=== PATIENT | female | born 1940 | race Caucasian/White ===

== ENCOUNTER → 2017-08-05 | Outpatient (CLI) | payer MEDICARE | LOC: GMAB 12:13 | PROVIDERS: ATTEND Family Medicine | DX: I10 Essential (primary) hypertension (principal) ==

== ENCOUNTER 2018-05-05 16:12 | Inpatient (IN) | payer MEDICARE ==
[2018-05-05] MEDS ORDERED: IPRATROPIUM/ALBUTEROL 3 ML VIAL NEB ONE (16:33)
[2018-05-05] MEDS ORDERED: OSELTAMIVIR 75 MG CAP PO ONE (16:33)
--- NOTE | 2018-05-05 16:55 | RAD ---
EXAM DESCRIPTION: Chest,2 Views CLINICAL HISTORY: 77 years Female, cough, sob, scattered rales maryamn dariana COMPARISON: None Available TECHNIQUE: PA/lateral FINDINGS: Cardiomegaly is evident. Diffuse interstitial and alveolar lung disease is observed. No pleural fluid is seen. Degenerative changes are seen in the thoracic spine. Posterior cervical spine fusion is observed. Bilateral breast implants are noted. IMPRESSION: Cardiomegaly and bilateral interstitial and alveolar lung disease is observed. The pattern is consistent with congestive heart failure. The possibility of a superimposed infection could also be entertained. 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
[2018-05-05] MEDS ORDERED: cefTRIAXone SODIUM 1 GM in SODIUM CHL 0.9% 50ML MIN-BAG+ 50 ML IVPB ONE (17:57)
[2018-05-05] MEDS ORDERED: AZITHROMYCIN IV 500 MG in SODIUM CHLORIDE 0.9% 250ML 250 ML IVPB ONE (17:57)
[2018-05-05] MEDS ORDERED: POTASSIUM CHLORIDE ELIXIR 20 MEQ/15 ML UD PO ONE (18:09)
[2018-05-05] MEDS ORDERED: SODIUM CHL 0.9% 50ML MIN-BAG+ 50 ML IVPB ONE (18:10)
[2018-05-05] MEDS ORDERED: cefTRIAXone SODIUM 1 GM VIAL ONE (18:10)
[2018-05-05] MEDS ORDERED: FUROSEMIDE INJ 40 MG/4 ML VIAL IV ONE (18:11)
--- NOTE | 2018-05-05 18:17 | ED.PDOC ---
History of Present Illness - General Chief Complaint: Respiratory Problem Stated Complaint: cough,sore throat,shortness of breath Time Seen by Provider: 05/05/18 16:29 Source: patient, family Exam Limitations: no limitations - History of Present Illness Initial Comments: The patient is a 77-year-old female presenting with 4-5 days of progressive symptoms of cough and shortness of breath. The patient has been exposed to another family member in the household with the flu. No history of any lung issues that she knows of. No history of any heart issues that she kn ows of. The patient desaturates down to around 85% on room air. History of any oxygen dependence. No history of any COPD. The patient has wheezes and rhonchi that can be heard without a stethoscope. She has mild increased work of breathing. She is alert and oriented but does have chronic hearing loss. She reports that symptoms started with a runny nose and a sore throat. The patient has not been on Tamiflu. She does short of breath with activity and with lying back. No swelling and no weight gain. No chest pain. Severity: moderate Improving Factors: nothing Worsening Factors: nothing Associated Symptoms: cough, fever/chills, loss of appetite, malaise, shortness of breath Allergies/Adverse Reactions: Allergies Codeine Allergy (Verified 05/05/18 16:59) horse serum Allergy (Uncoded 05/05/18 16:30) Home Medications: Ambulatory Orders Gabapentin 300 mg PO BID 05/05/18 Ibuprofen 200 mg PO BEDTIME 05/05/18 Lisinopril & Hydrochlorothiazi [Lisinopril/Hctz 20-12.5 mg] 1 tab PO DAILY 05/05/18 Sertraline HCl 100 mg PO DAILY 05/05/18 Vitamin B-12 05/05/18 Vitamin C 05/05/18 Review of Systems - Review of Systems Constitutional: States: chills, fever, malaise, weakness EENTM: States: nose congestion, throat pain Respiratory: States: cough, short of breath, wheezing Cardiology: States: no symptoms reported Gastrointestinal/Abdominal: States: no symptoms reported Genitourinary: States: no symptoms reported Musculoskeletal: States: no symptoms reported Skin: States: no symptoms reported Neurological: States: no symptoms reported Endocrine: States: no symptoms reported All other Systems: No Change from Baseline Past Medical History (General) - Patient Medical History Hx Stroke: No Hx Congestive Heart Failure: No Hx Hypertension: Yes Hx Diabetes: Yes Hx Cancer: Yes Surgical History: appendectomy, cholecystectomy, Hysterectomy - Vaccination History Hx Influenza Vaccination: No Hx Pneumococcal Vaccination: No - Social History Hx Tobacco Use: No Hx Depression: Yes Family Medical History - Family History Mother Family History: Unknown Physical Exam - Physical Exam General Appearance: Alert, Other - mild distress Eye Exam: bilateral normal Ears, Nose, Throat: nasal congestion, other - chronic hearing loss Neck: non-tender, supple Respiratory: respiratory distress - mild, accessory muscle use, rales, rhonchi, wheezing Cardiovascular/Chest: normal peripheral pulses, regular rate, rhythm, no edema Peripheral Pulses: radial,right: 2+, radial,left: 2+, dorsalis pedis,right: 2+, dorsalis pedis,left: 2+ Gastrointestinal/Abdominal: non tender, soft Rectal Exam: deferred Back Exam: no CVA tenderness, no vertebral tenderness Extremity: non-tender, normal inspection, no pedal edema, no calf tenderness, normal capillary refill 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: 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 beverage supervisor II-XII 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 tested, alert, normal mood/affect, oriented x 3 Skin Exam: normal color Comments: Vital Signs - 24 hr 05/05/18 05/05/18 05/05/18 16:27 16:55 17:40 Temperature 98.9 F Pulse Rate 94 H Pulse Rate [ 97 H Left Brachial] Respiratory 20 20 20 Rate Blood Pressure 146/61 [Left Arm] O2 Sat by Pulse 87 L 98 Oximetry 05/05/18 17:41 Temperature Pulse Rate Pulse Rate [ 91 H Left Brachial] Respiratory 20 Rate Blood Pressure 148/58 [Left Arm] O2 Sat by Pulse 96 Oximetry Progress - Progress Progress: 05/05/18 18:19 the patient is a 77-year-old female presenting to the emergency room with hypoxia and bilateral pneumonia. This probably did start with influenza so the patient is being placed on Tamiflu. Additionally she is being placed on Rocephin and azithromycin along with some oxygen. She has received 1 breathing treatment which did not really seem to help. It does appear that she is having a CHF component that may be reactive to the pneumonia. She is receiving 1 dose of IV Lasix. Cardiomegaly is evident on the x-ray. BNP is elevated as well. Her EKG does show that she has either had a previous myocardial infarction that was silent or she has a partial left fascicular block. No chest pain. Blood and sputum cultures are being done. Admit for continued IV antibiotic therapy and diuresis as needed as well as oxygen supplementation.the patient does have some hypokalemia which is being corrected orally currently. It will need to be followed due to diuresis. 05/05/18 18:22 - Results/Orders Results/Orders: chest x-ray shows infiltrates bilaterally along with cardiomegaly. EKG shows normal sinus rhythm at 97 bpm. Borderline QT interval. Poor R-wave progression in anterior leads. No ST segment or T-wave changes consistent with current ischemia. Borderline left axis. 05/05/18 17:15 EKG STAT 05/05/18 17:18 BLOOD CULTURE Stat 05/05/18 17:57 Azithromycin IV [Zithromax IV] 500 mg Sodium Chloride 0.9% 250Ml [NS 250ml] 250 ml IVPB ONCE cefTRIAXone SODIUM [Rocephin] 1 gm Sodium Chl 0.9% 50Ml Min-Bag+ [NS 50ml MINI-BAG+] 50 ml IVPB ONCE 05/05/18 18:15 SPUTUM CULTURE Stat Laboratory Results - last 24 hr 05/05/18 05/05/18 05/05/18 17:18 17:18 17:18 WBC 22.2 H* RBC 4.50 Hgb 12.8 Hct 39.1 MCV 86.9 MCH 28.5 MCHC 32.8 L RDW 15.1 H Plt Count 341 MPV 8.5 Absolute Neuts (auto) Not Reportable Absolute Lymphs (auto) Not Reportable Absolute Monos (auto) Not Reportable Absolute Eos (auto) Not Reportable Total Counted Neutrophils % Not Reportable Neutrophils % (Manual) 82.0 H Lymphocytes % Not Reportable Lymphocytes % (Manual) 6.0 Monocytes % Not Reportable Monocytes % (Manual) 10.0 Eosinophils % Not Reportable Basophils % Not Reportable Band Neutrophils 2.0 Eosinophils Basophils Metamyelocytes Myelocytes Promyelocytes Nucleated RBCs Differential Comment Not Reportable Hypersegmented Polys Blast Cells Plasma Cells Other Cell Type Hypochromia Toxic Granulation Dohle Bodies Nikki Rods Platelet Estimate Normal RBC Morphology Plts franki adequate Polychromasia Poikilocytosis Basophilic Stippling Anisocytosis Microcytosis Macrocytosis Spherocytes Sickle Cells Target Cells Ovalocytes Stomatocytes Helmet Cells Schmidt-Darfur Bodies Spencer Rings [place] Cells Acanthocytes (Spur) Rouleaux Schistocytes RBC Morph Comment PUBS Tear Drop Cells Sodium 136 Potassium 3.2 L Chloride 96 L Carbon Dioxide 28 Anion Gap 15.2 BUN 30 H Creatinine 0.82 BUN/Creatinine Ratio 36.6 H Random Glucose 156 H Serum Osmolality 281.3 Lactic Acid 1.0 Calcium 9.1 Magnesium 1.7 L Total Bilirubin 1.1 H AST 15 ALT 10 Alkaline Phosphatase 74 Creatine Kinase 38 CK-MB (CK-2) 1.5 CK-MB (CK-2) % Not Reportable Troponin I 0.04 B-Natriuretic Peptide 335.0 H* Serum Total Protein 8.1 Albumin 3.5 Globulin 4.6 H Albumin/Globulin Ratio 0.8 L 05/05/18 17:18 WBC RBC Hgb Hct MCV MCH MCHC RDW Plt Count MPV Absolute Neuts (auto) Absolute Lymphs (auto) Absolute Monos (auto) Absolute Eos (auto) Total Counted Cancelled Neutrophils % Neutrophils % (Manual) Cancelled Lymphocytes % Lymphocytes % (Manual) Cancelled Monocytes % Monocytes % (Manual) Cancelled Eosinophils % Basophils % Band Neutrophils Cancelled Eosinophils Cancelled Basophils Cancelled Metamyelocytes Cancelled Myelocytes Cancelled Promyelocytes Cancelled Nucleated RBCs Cancelled Differential Comment Cancelled Hypersegmented Polys Cancelled Blast Cells Cancelled Plasma Cells Cancelled Other Cell Type Cancelled Hypochromia Cancelled Toxic Granulation Cancelled Dohle Bodies Cancelled Nikki Rods Cancelled Platelet Estimate Cancelled Normal RBC Morphology Cancelled Polychromasia Cancelled Poikilocytosis Cancelled Basophilic Stippling Cancelled Anisocytosis Cancelled Microcytosis Cancelled Macrocytosis Cancelled Spherocytes Cancelled Sickle Cells Cancelled Target Cells Cancelled Ovalocytes Cancelled Stomatocytes Cancelled Helmet Cells Cancelled Schmidt-Darfur Bodies Cancelled Spencer Rings Cancelled Rob Cells Cancelled Acanthocytes (Spur) Cancelled Rouleaux Cancelled Schistocytes Cancelled RBC Morph Comment Cancelled PUBS Tear Drop Cells Cancelled Sodium Potassium Chloride Carbon Dioxide Anion Gap BUN Creatinine BUN/Creatinine Ratio Random Glucose Serum Osmolality Lactic Acid Calcium Magnesium Total Bilirubin AST ALT Alkaline Phosphatase Creatine Kinase CK-MB (CK-2) CK-MB (CK-2) % Troponin I B-Natriuretic Peptide Serum Total Protein Albumin Globulin Albumin/Globulin Ratio Departure - Departure Clinical Impression: Hypokalemia Pneumonia of both lower lobes Qualifiers: Pneumonia type: due to unspecified organism Qualified Code(s): J18.1 - Lobar pneumonia, unspecified organism CHF exacerbation Qualifiers: Heart failure type: unspecified Qualified Code(s): I50.9 - Heart failure, un specified Disposition: Admit Patient Departure Forms: ED Discharge - Pt. Copy, Patient Portal Self Enrollment Referrals: BAILEY GOODSON MD [Primary Care Provider] - 1-2 Weeks Home Medications: Ambulatory Orders Gabapentin 300 mg PO BID 05/05/18 Ibuprofen 200 mg PO BEDTIME 05/05/18 Lisinopril & Hydrochlorothiazi [Lisinopril/Hctz 20-12.5 mg] 1 tab PO DAILY 05/05/18 Sertraline HCl 100 mg PO DAILY 05/05/18 Vitamin B-12 05/05/18 Vitamin C 05/05/18 Decision To Admit - Decistion To Admit Decision to Admit Reason: Medical Nature Decision to Admit Date: 05/05/18 Decision to Admit Time: 18:23
[2018-05-05] MEDS ORDERED: AZITHROMYCIN IV 500 MG VIAL IVPB ONE (18:49)
[2018-05-05] MEDS ORDERED: SODIUM CHLORIDE 0.9% 250ML 250 ML ONE (18:50)
--- NOTE | 2018-05-05 20:14 | HP ---
SUPERVISING PHYSICIAN: Amaury Arana MD CHIEF COMPLAINT: Cough, shortness of breath. HISTORY OF PRESENT ILLNESS: Ms. Griffin is a 77 year-old female patient who presented to the Emergency Room after having 4 to 5 days of worsening symptoms including cough and shortness of breath with productive sputum. She had been previously exposed to another family member who had Flu-A. She has no significant history of chronic obstructive pulmonary disease but was twice to heavy smokers and was exposed to second hand smoke. In the Emergency Room, it was noted the patient desatted fairly easily on room air, down to 85%. No history of oxygen dependency or chronic obstructive pulmonary disease. She also had audible wheezing without a stethoscope and some increased work of breathing. She noted that initially her symptoms started with a runny nose last but she did not take any Tamiflu or sought medical treatment. Shortness of breath with activity had been increasing as well as when lying supine. She denies any swelling or weight gain or any chest pains. Laboratory studies showed she had a significant leukocytosis with a left shift and bands. Her BNP was elevated as well. Her lactic acid was normal. Initial radiographic; studies included a 2-view chest which showed cardiomegaly with bilateral interstitial and alveolar lung disease pattern consistent with congestive heart failure with possible superimposed infection. Given her symptomatology, findings on x-ray as well as her leukocytosis and concerns for developing bilateral pneumonia, community acquired, and developing early sepsis, the patient is going to be admitted to the medical/surgical floor for further treatment and evaluation. Prior to admission, blood cultures and sputum cultures were completed and she was started on antibiotics with Rocephin and azithromycin and Tamiflu. PAST MEDICAL HISTORY: 1. Hypertension. 2. Neuropathy. 3. Diabetes mellitus type 2, diet controlled. 4. Depression. PAST SURGICAL HISTORY: 1. Bilateral breast implants in the s. 2. Hysterectomy and appendectomy in the s. 3. Spinal fusion in 2016. 4. Cholecystectomy in 1987. CURRENT MEDICATIONS: 1, Sertraline 100 mg daily. 2. Combination lisinopril/Hydrochlorothiazide 20-12.5, one daily. 3. Ibuprofen 200 mg daily. 4. Gabapentin b.i.d. ALLERGIES: CODEINE, HORSE SERUM. FAMILY HISTORY: Mother at age 99 with a history of diabetes and heart disease. Father at age 80 with history of colon cancer. She has 2 sons, one son is , the other is healthy. She has 2 sisters, one who had hypertension and diabetes and heart disease. SOCIAL HISTORY: She lives in [place], [place]. She is retired from [employer]. She has never smoked, never drank alcohol. She is and apparently lives by herself. REVIEW OF SYSTEMS: CONSTITUTIONAL: Positive for chills, fever, general malaise, weakness. . HEENT: Positive for nasal congestion, sore throat. Negative for any earaches. RESPIRATORY: Positive for coughing, wheezing, shortness of breath. CARDIOVASCULAR: Negative for chest pain, palpitations, syncopal episodes. . GASTROINTESTINAL: Negative for nausea, vomiting, diarrhea, constipation or abdominal pain. GENITOURINARY: Denies dysuria, hematuria, polyuria. SKIN: No reported unexplained lesions, rashes or moles. NEUROLOGICAL: Negative for ataxia, seizures, syncopal episodes or other focal deficits or vision changes. She has decreased hearing bilaterally. PHYSICAL EXAMINATION: VITAL SIGNS: Temperature 98.9, pulse 97, blood pressure 146/61, respirations 20, saturation 87% on room air. After breathing treatments she was showing 94% on nasal cannula at one liter. Admission weight 93.8 kg. GENERAL: The patient is alert on the medical floor. She appears to be in no acute distress. She is resting comfortably. She is awfully hard of hearing but is alert. HEENT: Tympanic membranes are clear bilaterally. Oropharynx is pink with notable nasal congestion bilaterally. NECK: Supple, non-tender with full range of motion. CHEST: Lung sounds notable for faint rhonchi, rales, and wheezes throughout. Again, more prominent in the right upper lung field compared to the left. CARDIOVASCULAR: Heart regular rate and rhythm without appreciable murmurs, rubs, or gallops. ABDOMEN: Soft but obese, non-tender, positive bowel sounds. EXTREMITIES: Without cyanosis, clubbing, or edema. BACK: Without any CVA tenderness, no vertebral tenderness. NEUROLOGIC: Cranial nerves II through XII are grossly intact. Facial features are symmetrical. Extraocular movements within normal limits. No notable nystagmus. She is alert and oriented x 3. SKIN: Warm, pink and dry with no lesions or rashes noted. LABORATORY: White count shows a leukocytosis of 22,200 with a hemoglobin of 12.8 and hematocrit of 39.1. Platelet count 341,000, differential showed a left shift with 2% bands. Chemistries showed a potassium of 3.2, normal sodium 136. Carbon dioxide normal at 28 with BUN of 30, creatinine 0.82. Glucose 156 and calcium normal at 9.1 with lactic acid of 1. Magnesium was low at 1.7, bilirubin 1.1. All other liver functions were within normal limits. She had a troponin of 0.04, BNP elevated at 335. MICROBIOLOGY: Influenza A and B screen bu PCR was positive for A. Sputum cultures pending. Blood cultures pending. RADIOLOGY: Chest x-ray per radiology interpretation shows cardiomegaly and bilateral interstitial and alveolar lung disease pattern consistent with congestive heart failure and possibility of superimposed infection could not be entertained. EKG pending at time of admission. ASSESSMENT: 1. Viral pneumonitis secondary to influenza A with secondary bacterial pneumonia, likely community acquired bilaterally. 2. Sepsis secondary to #1. 3. Electrolyte imbalance to include hypokalemia and hypomagnesemia. 4. Congestive heart failure without echocardiogram for review, etiology uncertain with elevated BNP on admission possibly secondary to underlying respiratory infection with patient reporting no chest pain. 5. Influenza A infection. 6. Possible urinary tract infection with urine cultures pending. 7. History of hypertension. 8. History of' peripheral neuropathy. 9. History of depression. 10. History of diabetes mellitus type 2 on diet therapy only. 11. Moderate dehydration secondary to underlying infectious process including pneumonia and viral pneumonitis. PLAN: The patient is to be admitted for further treatment of influenza A and community acquired bilateral pneumonia. There are some concerns for possible congestive heart failure exacerbation, although the patient does not have a formal diagnosis. The patient's family reports that she has been having some episodes over the last month of exertional dyspnea. She was given a single dose of Lasix in the Emergency Room. Will monitor this to see how she responds. Will hold off on any IV fluids at this point. I started her on antibiotics to include Rocephin and azithromycin. She will be on Tamiflu as well and DVT prophylaxis as per protocol. Will go ahead and start her on sliding scale insulin per protocol. Will start her on aggressive pulmonary hygiene with chest percussive therapy and go ahead and put on q.i.d. Duoneb treatments as well as Pulmicort and hold off any systemic steroids and reassess in the morning. Will repeat labs and chest x-ray and anticipate 2 or 3 days of admission. Until she can transition to other problems manage, we will continue to monitor and treat as needed. Once discharged, she will need followup with her primary care physician, Dr. Martel. #[id number] MTDD
[2018-05-05] MEDS: ALBUTEROL SULFATE 2.5 MG/3 ML VIAL NEB PRN (21:54)
[2018-05-05] MEDS: BUDESONIDE NEBS 0.5 MG/2 ML VIAL NEB SCH (21:54)
[2018-05-05] MEDS: IV SET AND CAP CHANGE INJ INJ SCH (22:13)
[2018-05-05] MEDS ORDERED: NYSTATIN POWDER 15GM BTTL TOP ONE (22:57)
[2018-05-06] MEDS ORDERED: MAGNESIUM SULFATE PREMIX 2GM 2 GM in PREMIX BAG 1 BAG IVPB ONE (00:16)
[2018-05-06] MEDS ORDERED: MAGNESIUM SULFATE PREMIX 2GM 50 ML IVPB ONE (00:24)
[2018-05-06] MEDS: NYSTATIN POWDER 15GM BTTL TOP SCH ×5 (00:38→20:04)
[2018-05-06] MEDS: ALBUTEROL SULFATE 2.5 MG/3 ML VIAL NEB PRN (05:02)
[2018-05-06] MEDS ORDERED: ALPRAZolam 0.5 MG TAB ONE (05:30)
[2018-05-06] MEDS: ALPRAZolam 0.5 MG TAB PO PRN ×2 (05:35→17:46)
[2018-05-06] MEDS ORDERED: SODIUM CHL 0.9% 50ML MIN-BAG+ 50 ML IVPB ONE (06:38)
[2018-05-06] MEDS ORDERED: SODIUM CHLORIDE 0.9% 250ML 250 ML ONE ×2 (06:38→09:45)
[2018-05-06] MEDS ORDERED: cefTRIAXone SODIUM 1 GM VIAL ONE (06:39)
[2018-05-06] MEDS ORDERED: AZITHROMYCIN IV 500 MG VIAL IVPB ONE ×2 (06:39→09:46)
[2018-05-06] MEDS: PANTOPRAZOLE SODIUM IV 40 MG VIAL IV SCH (06:40)
--- NOTE | 2018-05-06 06:57 | RAD ---
EXAM: Two view chest. INDICATION: Pneumonia. COMPARISON: Chest x-ray: 05/05/2018. FINDINGS: There is mild worsening pulmonary vascular congestion with grossly stable bibasilar opacities. The heart size is stable. There is no pneumothorax or pleural effusion. Calcified breast implants are noted. The bones are unchanged. IMPRESSION: Mild worsening pulmonary vascular congestion with grossly stable bibasilar opacities Electronically signed by: Louis Yi MD 05/06/2018 6:54 AM EARTH MOVING TECHNICIAN Workstation: [id number]
[2018-05-06] MEDS: IPRATROPIUM/ALBUTEROL 3 ML VIAL INH SCH ×4 (08:21→21:37)
[2018-05-06] MEDS: BUDESONIDE NEBS 0.5 MG/2 ML VIAL NEB SCH ×2 (08:21→21:37)
[2018-05-06] MEDS: cefTRIAXone SODIUM 1 GM in SODIUM CHL 0.9% 50ML MIN-BAG+ 50 ML IVPB SCH (09:44)
[2018-05-06] MEDS: BIFIDOBACTERIUM INFANTIS 4 MG CAP PO SCH (09:44)
[2018-05-06] MEDS: OSELTAMIVIR 75 MG CAP PO SCH ×2 (09:44→20:04)
[2018-05-06] MEDS: hydroCHLOROthiazide 12.5 MG CAP PO SCH (09:52)
[2018-05-06] MEDS: ENOXAPARIN SODIUM 40 MG/0.4 ML SYG SUBCU SCH (09:52)
[2018-05-06] MEDS: SERTRALINE HCL 50 MG TAB PO SCH (09:52)
[2018-05-06] MEDS: LISINOPRIL 10 MG TAB PO SCH (09:53)
[2018-05-06] MEDS: GABAPENTIN 300 MG CAP PO SCH ×2 (10:00→20:04)
[2018-05-06] MEDS: AZITHROMYCIN IV 500 MG in SODIUM CHLORIDE 0.9% 250ML 250 ML IVPB SCH (10:30)
[2018-05-06] MEDS ORDERED: DEXTROSE 50% 25 GM/50 ML SYG IV PRN (11:02)
[2018-05-06] MEDS ORDERED: GLUCAGON INJ 1 MG VIAL SUBCU PRN (11:02)
[2018-05-06] MEDS ORDERED: FUROSEMIDE 40 MG TAB ONE (12:08)
[2018-05-06] MEDS: FUROSEMIDE 40 MG TAB PO SCH ×2 (13:00→17:05)
[2018-05-06] MEDS: INSULIN LISPRO 100 UNITS/ML PEN SUBCU SCH ×3 (13:02→21:31)
--- NOTE | 2018-05-06 13:53 | PN ---
DATE: 05/06/18 SUBJECTIVE: Today, the patient states she feels about the same as yesterday, no real major improvement. She and her daughter both endorse that most of her shortness of breath occurs when she is having to go to the restroom and exerting herself in any way. Otherwise, no real changes overnight. Upon further questioning, the patient and the daughter both endorse that she has had a long history of anxiety and panic attacks, and this also leads to a depressive type state as well. The daughter does admit to giving the patient a couple of doses of clonidine several days ago to help with her anxiety. OBJECTIVE: VITAL SIGNS: Temperature 98.4 Fahrenheit. Pulse 101. Blood pressure 127/73. Respiratory rate 18 per minute. Oxygen saturation 92% on 2 liters nasal cannula. GENERAL: No acute distress, speaking 5 to 7 words before taking a breath. CHEST: Bibasilar dullness in auscultation, end expiratory wheezing bilaterally, potential combination of crackles bibasilar. CARDIAC: Normal rate and rhythm, no murmurs. ABDOMEN: Soft, nontender, normal bowel sounds. EXTREMITIES: No pitting edema observed bilateral lower extremities, normal pulses, very mild stasis dermatitis changes bilateral lower extremities. LABORATORY: White blood cell count 22.4 in light of steroid use and treatment for pneumonia, hemoglobin 12.0, hematocrit 36.7 with a decreasing left shift currently. Sodium 138, potassium 3.9, chloride 97, carbon dioxide 29, BUN 29, creatinine 0.95. POC glucose is 169. BNP from 04/27/18 is 335. MICROBIOLOGY: Blood cultures negative x1 day. Sputum culture pending. Influenza A positive. IMAGING: Chest x-ray from 05/06/18 shows "mild worsening pulmonary vascular congestion with grossly stable bibasilar opacities." ASSESSMENT: 1. Viral pneumonitis secondary to influenza A with secondary bacterial pneumonia, likely community acquired, bilaterally. 2. Sepsis secondary to #1, now resolved. 3. Electrolyte imbalance to include hypokalemia and hypomagnesemia. 4. Congestive heart failure without echocardiogram for review, etiology uncertain with elevated BNP on admission possibly secondary to underlying respiratory infection with patient reporting no chest pain. 5. Influenza A infection. 6. Possible urinary tract infection with urine cultures pending. 7. History of hypertension. 8. History of' peripheral neuropathy. 9. History of depression. 10. History of diabetes mellitus, type 2, on diet therapy only. 11. Moderate dehydration secondary to underlying infectious process including pneumonia and viral pneumonitis. PLAN: We are going to continue treatment for flu A with Tamiflu, as well as potential overlying pneumonia with Rocephin and azithromycin. Given her elevated BNP and uncertain history of congestive heart failure, we will go ahead and start p.o. Lasix b.i.d. at this time. She did have a one-time dose of Lasix in the Emergency Room with some decent improvement in symptoms, but not total resolution. We will followup with hemoglobin A1c, even though her sugar current status related to steroids, she is at risk and needs screening. We will follow chest x-ray in the morning, 05/07/18, potentially will need to be in the hospital for only one or two more days until stabilized. #[id number] MTDD
[2018-05-06] MEDS ORDERED: methylPREDNISolone SODIUM SUC 125 MG/2 ML VIAL IV ONE (17:21)
[2018-05-06] MEDS: IBUPROFEN 200 MG TAB PO SCH (20:04)
--- NOTE | 2018-05-07 06:04 | RAD ---
EXAM: Single view chest. INDICATION: Pneumonia. COMPARISON: Chest x-ray: 05/06/2018. FINDINGS: There is grossly stable pulmonary vascular congestion. The heart is enlarged. There is no pneumothorax or pleural effusion. Calcified breast implants are again noted. Bones are unchanged. IMPRESSION: Grossly stable pulmonary vascular congestion Electronically signed by: Louis Yi MD 05/07/2018 6:01 AM SENIOR DRAFTER Workstation: [id number]
[2018-05-07] MEDS: PANTOPRAZOLE SODIUM IV 40 MG VIAL IV SCH (06:06)
[2018-05-07] MEDS ORDERED: SODIUM CHL 0.9% 50ML MIN-BAG+ 50 ML IVPB ONE (07:24)
[2018-05-07] MEDS ORDERED: cefTRIAXone SODIUM 1 GM VIAL ONE (07:26)
[2018-05-07] MEDS: INSULIN LISPRO 100 UNITS/ML PEN SUBCU SCH ×4 (07:34→21:11)
[2018-05-07] MEDS: OSELTAMIVIR 75 MG CAP PO SCH ×2 (08:13→20:40)
[2018-05-07] MEDS: FUROSEMIDE 40 MG TAB PO SCH ×2 (08:13→16:27)
[2018-05-07] MEDS: BIFIDOBACTERIUM INFANTIS 4 MG CAP PO SCH (08:13)
[2018-05-07] MEDS: LISINOPRIL 10 MG TAB PO SCH (08:13)
[2018-05-07] MEDS: hydroCHLOROthiazide 12.5 MG CAP PO SCH (08:14)
[2018-05-07] MEDS: ENOXAPARIN SODIUM 40 MG/0.4 ML SYG SUBCU SCH (08:14)
[2018-05-07] MEDS: GABAPENTIN 300 MG CAP PO SCH ×2 (08:14→20:40)
[2018-05-07] MEDS: SODIUM CHLORIDE 0.9% (FLUSH) 10 ML SYG IV PRN (08:14)
[2018-05-07] MEDS: cefTRIAXone SODIUM 1 GM in SODIUM CHL 0.9% 50ML MIN-BAG+ 50 ML IVPB SCH (08:15)
[2018-05-07] MEDS: BUDESONIDE NEBS 0.5 MG/2 ML VIAL NEB SCH ×2 (08:34→20:32)
[2018-05-07] MEDS: IPRATROPIUM/ALBUTEROL 3 ML VIAL INH SCH ×4 (08:34→20:32)
[2018-05-07] MEDS: ALBUTEROL SULFATE 2.5 MG/3 ML VIAL NEB PRN (09:35)
[2018-05-07] MEDS: SERTRALINE HCL 50 MG TAB PO SCH (10:00)
[2018-05-07] MEDS: NYSTATIN POWDER 15GM BTTL TOP SCH ×4 (10:01→20:41)
--- NOTE | 2018-05-07 10:19 | PN ---
DATE: 05/07/18 SUBJECTIVE: This morning the patient was sleeping comfortably, and endorses some decent rest overnight. Daughter is in the room and she confirms that the patient did very well overnight. Yesterday evening, the patient had some issues with shortness of breath and difficulty catching her breath, ultimately seeming to be due to her history of anxiety and suspected panic attacks. It was reiterated that she was given a couple of doses of her daughter's Clonidine during the past week due to some panic attacks. She was given Xanax last night, a small dose with great resolution and denied symptoms. She was also given steroids late in the evening, which seemed to help her open up regarding her lungs. She had not received any steroids over this day until that time. REVIEW OF SYSTEMS: GENERAL: Resting well, no distress. CHEST: Very minimal shortness of breath, minimal to no cough. CARDIAC: No chest pain, no palpitations. ABDOMEN: No abdominal pain, no constipation or diarrhea. NEURO: No confusion, no headache. OBJECTIVE: VITAL SIGNS: Temperature 97.4. Pulse 87. Blood pressure 144/80. Respiratory rate 16. Oxygen saturation 96% on 3 liters nasal cannula. PHYSICAL EXAMINATION: GENERAL: Resting comfortably, no acute distress.. CHEST: Improving lung sounds bilaterally, minimal wheezes, minimal crackles, no dullness to auscultation throughout. . CARDIAC: Normal rate and rhythm, possible slight systolic murmur. EXTREMITIES: Mild edema to bilateral lower extremities, stable, normal strength throughout extremities. NEURO: Alert and oriented to person, place and time, no focal deficits.. LABORATORY: Blood glucose 140 to 190. . MICROBIOLOGY: Flu-A positive on admission. Blood cultures negative x1 day. . IMAGING: Chest x-ray from 05/07/18: "Grossly stable pulmonary vascular congestion, heart mildly enlarged." ASSESSMENT: 1. Viral pneumonitis secondary to influenza A with secondary bacterial pneumonia, likely community acquired, bilaterally. 2. Sepsis secondary to #1, now resolved. 3. Electrolyte imbalance to include hypokalemia and hypomagnesemia. 4. Congestive heart failure without echocardiogram for review, etiology uncertain with elevated BNP on admission possibly secondary to underlying respiratory infection with patient reporting no chest pain. 5. Influenza A infection. 6. Possible urinary tract infection with urine cultures pending. 7. History of hypertension. 8. History of' peripheral neuropathy. 9. History of depression. 10. History of diabetes mellitus, type 2, on diet therapy only. 11. Moderate dehydration secondary to underlying infectious process including pneumonia and viral pneumonitis. PLAN: We are going to continue treatment for influenza A with Tamiflu, and suspected overlying pneumonia with Rocephin and azithromycin. Yesterday, we stabilized her breathing with Duoneb q.i.d. as well as albuterol every 4 hours p.r.n. She required an additional dose of Solu-Medrol 125 mg yesterday afternoon, responded well to this. Will likely start a small prednisone taper by mouth in the next day. Also initiated Lasix 20 mg b.i.d. on the previous day, this seems to be improving her breathing and respiratory status. The additional treatments that have come up are regarding her anxiety and history of panic attacks. Yesterday evening she had an issue with some shortness of breath, which exacerbated her anxiety and a panic attack picture which rather exacerbated her shortness of breath. She did well with a very small dose of Xanax 0.25 mg. We discussed that this is not something that we need to continue outpatient, but a more stable and long-term treatment would be beneficial to pursue. We will likely be able to start Vistaril p.r.n. for anxiety and panic. This will need to be followed up with her primary care physician, as we discussed with her and the family. Continue current management previously, potential discharge in the next one to two days. #[id number] MTDD
[2018-05-07] MEDS ORDERED: SODIUM CHLORIDE 0.9% 250ML 250 ML ONE (10:48)
[2018-05-07] MEDS ORDERED: AZITHROMYCIN IV 500 MG VIAL IVPB ONE (10:48)
[2018-05-07] MEDS: AZITHROMYCIN IV 500 MG in SODIUM CHLORIDE 0.9% 250ML 250 ML IVPB SCH (10:55)
[2018-05-07] MEDS: predniSONE 20 MG TAB PO SCH (16:27)
[2018-05-07] MEDS: ALPRAZolam 0.5 MG TAB PO PRN (20:40)
[2018-05-07] MEDS: IBUPROFEN 200 MG TAB PO SCH (20:40)
[2018-05-08] MEDS: PANTOPRAZOLE SODIUM IV 40 MG VIAL IV SCH (06:07)
[2018-05-08] MEDS ORDERED: SODIUM CHLORIDE 0.9% 250ML 250 ML ONE (07:53)
[2018-05-08] MEDS: INSULIN LISPRO 100 UNITS/ML PEN SUBCU SCH ×4 (07:53→21:32)
[2018-05-08] MEDS ORDERED: SODIUM CHL 0.9% 50ML MIN-BAG+ 50 ML IVPB ONE (07:54)
[2018-05-08] MEDS ORDERED: AZITHROMYCIN IV 500 MG VIAL IVPB ONE (07:55)
[2018-05-08] MEDS ORDERED: cefTRIAXone SODIUM 1 GM VIAL ONE (07:55)
[2018-05-08] MEDS: cefTRIAXone SODIUM 1 GM in SODIUM CHL 0.9% 50ML MIN-BAG+ 50 ML IVPB SCH (08:48)
[2018-05-08] MEDS: BIFIDOBACTERIUM INFANTIS 4 MG CAP PO SCH (08:49)
[2018-05-08] MEDS: LISINOPRIL 10 MG TAB PO SCH (08:49)
[2018-05-08] MEDS: hydroCHLOROthiazide 12.5 MG CAP PO SCH (08:50)
[2018-05-08] MEDS: OSELTAMIVIR 75 MG CAP PO SCH ×2 (08:50→20:20)
[2018-05-08] MEDS: SERTRALINE HCL 50 MG TAB PO SCH (08:50)
[2018-05-08] MEDS: predniSONE 20 MG TAB PO SCH (08:50)
[2018-05-08] MEDS: FUROSEMIDE 40 MG TAB PO SCH ×2 (08:51→17:07)
[2018-05-08] MEDS: ENOXAPARIN SODIUM 40 MG/0.4 ML SYG SUBCU SCH (08:51)
[2018-05-08] MEDS: GABAPENTIN 300 MG CAP PO SCH ×2 (08:51→20:19)
[2018-05-08] MEDS: IPRATROPIUM/ALBUTEROL 3 ML VIAL INH SCH ×4 (08:53→20:08)
[2018-05-08] MEDS: BUDESONIDE NEBS 0.5 MG/2 ML VIAL NEB SCH ×2 (08:53→20:08)
[2018-05-08] MEDS: ACETAMINOPHEN 325 MG TAB PO PRN ×2 (08:53→14:41)
[2018-05-08] MEDS: NYSTATIN POWDER 15GM BTTL TOP SCH ×4 (09:15→20:21)
[2018-05-08] MEDS: AZITHROMYCIN IV 500 MG in SODIUM CHLORIDE 0.9% 250ML 250 ML IVPB SCH (09:30)
[2018-05-08] MEDS: ALPRAZolam 0.5 MG TAB PO PRN (11:04)
[2018-05-08] MEDS: ONDANSETRON INJ 4 MG/2 ML VIAL IV PRN (11:08)
[2018-05-08] MEDS ORDERED: ALPRAZolam 0.25 MG TAB PO PRN (18:41)
[2018-05-08] MEDS: IBUPROFEN 200 MG TAB PO SCH (20:19)
[2018-05-08] MEDS: IV SET AND CAP CHANGE INJ INJ SCH (20:21)
--- NOTE | 2018-05-08 21:02 | PN ---
DATE: 05/08/18 SUPERVISING PHYSICIAN: Kong Dao MD SUBJECTIVE: Today, the patient on exam is quite sleepy. She just got a Xanax about 30 minutes prior to my arrival. One of her sons is in the room and we discussed at length plan of care involving need to have a social consultation as well as physical therapy, and the need to assess for her needs for oxygen. Given the patient's past description of her increasing dyspnea, she would benefit probably from home O2. Will see if we can qualify her for that today as well as we did discuss with her and the son the need for pulmonary rehab. Given that the patient obviously is having some issues with depression, we discussed [facility] and will plan to have that consultation in the morning. She has responded well to treatment but continues to have some mild anxiety issues. OBJECTIVE: VITAL SIGNS: Temperature 97.5, pulse 98, blood pressure 112/64, respirations 16, satting 97% on nasal cannula at rest on 2 liters. I's and O's show a positive balance of 210 with 1360 in, 1150 out. Weight is 94.8 kg. GENERAL: The patient is resting comfortably. She is sleepy after receiving a Xanax but responds easily to questions. CHEST: Lung sounds are much improved from admission. She continues with just a slight inspiratory and expiratory wheeze throughout, but has much improved aeration from admission. HEART: Regular rate and rhythm. No appreciable murmurs, gallops, or rubs. EXTREMITIES: Show to be without any edema. NEUROLOGIC: She is alert and oriented to person, place, and time, just mildly lethargic from just recently receiving a Xanax. LABORATORY: White count is down to 15,000. Hemoglobin and hematocrit are showing to be stable. Chemistries show normal electrolytes with BUN 42 which is slightly elevated but she will be started on some Lasix. Creatinine is 1.0. Blood sugar is showing to be stable between 127 and 185. Calcium 8.7. MICROBIOLOGY: Sputum culture was cancelled due to poor specimen. Blood cultures remain negative at 3 days. RADIOLOGY: Will plan to reevaluate in the morning. ASSESSMENT: 1. Viral pneumonitis secondary to influenza A with secondary bacterial pneumonia, likely community acquired, bilaterally. 2. Sepsis secondary to #1, now resolved. 3. Electrolyte imbalance to include hypokalemia and hypomagnesemia. 4. Congestive heart failure without echocardiogram for review, etiology uncertain with elevated BNP on admission possibly secondary to underlying respiratory infection with patient reporting no chest pain. 5. Influenza A infection. 6. Possible urinary tract infection with urine cultures pending. 7. History of hypertension. 8. History of' peripheral neuropathy. 9. History of depression. 10. History of diabetes mellitus, type 2, on diet therapy only. 11. Moderate dehydration secondary to underlying infectious process including pneumonia and viral pneumonitis. PLAN: Will continue with current plan at this point with Tamiflu and treatment for possible underlying pneumonia with Rocephin and azithromycin. She continues to do well on q.i.d. breathing treatments. I do not think she will benefit from an addition dose of steroids today as she is doing well on oral steroids. Will continue with Lasix b.i.d. as she seems to be responding well. In regards to her panic attacks, 0.5 of Xanax seems to be a little bit overwhelming for her so we will decrease the dose on that to 0.25 to see if we can at least not make her so lethargic. I did discuss at length the need for consultation with [employer] referral to [facility] and the need to go to pulmonary rehab as well as work on qualifications for oxygen once discharged. It is pretty obvious that the patient is not doing well with her depression treatment. This will need to be followed-up in the outpatient setting, but certainly will benefit if she would go to [facility]. She will need the support of her family in order to do this. Hopefully after repeat chest and CBC in the morning will be able to transition the patient to outpatient management once she is able to have completion of her consultation with [facility] and physical therapy. Will await her ambulation study to see if she will qualify for home O2, and if so will make arrangements for that in the morning. Once she does stabilize and able to transition hopefully tomorrow afternoon, she will need close followup with Dr. Simons, her primary care provider, for more workup in regards to possible congestive heart failure. She is currently on an Jorge inhibitor, but not on a beta juan pablo, and she will also need echocardiogram at some point. Until then will continue to monitor and treat as needed. #[id number] [facility]
[2018-05-09] MEDS: ONDANSETRON INJ 4 MG/2 ML VIAL IV PRN (02:55)
[2018-05-09] MEDS: PANTOPRAZOLE SODIUM IV 40 MG VIAL IV SCH (06:23)
[2018-05-09] MEDS: SODIUM CHLORIDE 0.9% (FLUSH) 10 ML SYG IV PRN (06:23)
[2018-05-09] MEDS: ALBUTEROL SULFATE 2.5 MG/3 ML VIAL NEB PRN (06:29)
[2018-05-09] MEDS: BUDESONIDE NEBS 0.5 MG/2 ML VIAL NEB SCH ×2 (07:15→19:38)
[2018-05-09] MEDS: IPRATROPIUM/ALBUTEROL 3 ML VIAL INH SCH ×4 (07:15→19:38)
[2018-05-09] MEDS ORDERED: SODIUM CHL 0.9% 50ML MIN-BAG+ 50 ML IVPB ONE (07:22)
[2018-05-09] MEDS ORDERED: cefTRIAXone SODIUM 1 GM VIAL ONE (07:23)
[2018-05-09] MEDS: INSULIN LISPRO 100 UNITS/ML PEN SUBCU SCH ×4 (08:06→21:24)
[2018-05-09] MEDS: hydroCHLOROthiazide 12.5 MG CAP PO SCH (08:35)
[2018-05-09] MEDS: FUROSEMIDE 40 MG TAB PO SCH (08:35)
[2018-05-09] MEDS: BIFIDOBACTERIUM INFANTIS 4 MG CAP PO SCH (08:35)
[2018-05-09] MEDS: GABAPENTIN 300 MG CAP PO SCH ×2 (08:37→21:26)
[2018-05-09] MEDS: ENOXAPARIN SODIUM 40 MG/0.4 ML SYG SUBCU SCH (08:38)
[2018-05-09] MEDS: cefTRIAXone SODIUM 1 GM in SODIUM CHL 0.9% 50ML MIN-BAG+ 50 ML IVPB SCH (08:41)
[2018-05-09] MEDS: LISINOPRIL 10 MG TAB PO SCH (08:41)
[2018-05-09] MEDS: OSELTAMIVIR 75 MG CAP PO SCH ×2 (08:52→21:26)
[2018-05-09] MEDS ORDERED: SODIUM CHLORIDE 0.9% 250ML 250 ML ONE (08:53)
[2018-05-09] MEDS ORDERED: AZITHROMYCIN IV 500 MG VIAL IVPB ONE (08:54)
--- NOTE | 2018-05-09 09:00 | RAD ---
EXAM DESCRIPTION: Chest,1 View CLINICAL HISTORY: 77 years Female, pneumonia COMPARISON: Previous study May 07, 2018 TECHNIQUE: AP portable chest. FINDINGS: Heart size is large with increased pulmonary vascularity. Calcified breast implants bilaterally. Extensive infiltrative changes in the perihilar and lower lobe regions have an appearance suggesting pulmonary edema from volume overload or congestive failure. Findings have progressed since the previous study although the degree of aeration is somewhat less which may accentuate the findings. More focal infiltrate in the medial lung bases and lingula could indicate superimposed pneumonia in one or more areas. No pulmonary mass or worrisome nodule. No pneumothorax or large pleural effusion. Bones are unremarkable. IMPRESSION: Large heart with increased vascularity pulmonary edema consistent with volume overload or congestive failure. Electronically signed by: Tim Viera MD 05/09/2018 8:[address] [facility]
[2018-05-09] MEDS: AZITHROMYCIN IV 500 MG in SODIUM CHLORIDE 0.9% 250ML 250 ML IVPB SCH (09:37)
[2018-05-09] MEDS: BUMETANIDE 0.25 MG/ML VIAL IV SCH (09:37)
[2018-05-09] MEDS: NYSTATIN POWDER 15GM BTTL TOP SCH ×4 (09:38→21:26)
[2018-05-09] MEDS: predniSONE 20 MG TAB PO SCH (09:38)
--- NOTE | 2018-05-09 10:02 | CT ---
Study: CT of the Head. Indication: AMS change Technique: Axial CT images of the head were acquired without intravenous contrast. This exam was performed according to our departmental dose-optimization program, which includes automated exposure control, adjustment of the mA and/or kV according to patient size and/or use of iterative reconstruction technique. Comparison: None. Findings: No acute ischemia, acute hemorrhage, mass, mass effect, midline shift, or extra-axial fluid collection identified by CT. Ventricles are normal in configuration without hydrocephalus. Brain parenchyma demonstrates a normal appearance for patient age. Paranasal sinuses are adequately aerated. Mastoid air cells are adequately aerated. Osseous structures and soft tissues are unremarkable. Impression: No acute intracranial abnormality by CT. Electronically signed by: Gucci Lopez MD 05/09/2018 9:58 AM [facility]
[2018-05-09] MEDS: SERTRALINE HCL 50 MG TAB PO SCH (10:05)
--- NOTE | 2018-05-09 16:07 | PN ---
SUPERVISING PHYSICIAN: Mac Smions MD DATE: 05/09/18 SUBJECTIVE: Today, the patient seems to be a little bit mentally suppressed and lethargic compared to previous days. She is in no obvious distress, but very slow to respond to questioning. She shows no outward indications of respiratory compromise. She is showing very minimal response to Lasix. I discussed with the family at the bedside, mainly her son and daughter, that we will do diagnostic testing including CT and additional labs and work to diurese some fluids and stop her sedative medications along with Tamiflu in efforts to see if this corrects her acute change in mental status. OBJECTIVE: VITAL SIGNS: Temperature 97.8. Pulse 109. Blood pressure 132/62. Respirations 18. Obstructive sleep apnea 89% on nasal cannulae at rest on 4 liters after breathing treatment, improved to 93% on 2-1/2 liters. I&Os show positive balance of 1125 with 1400 in, 2700 out. Weight 94.8 kg. GENERAL: The patient is very lethargic, but will open her eyes and respond to questions, but essentially just shakes her head yes or no to questions. CHEST: Lung sounds continue to be diminished throughout with some rhonchi heard in the bilateral bases, but no obvious wheezing or rales. HEART: Regular rate and rhythm. ABDOMEN: Obese, but soft. Nontender. Positive bowel sounds. EXTREMITIES: Without edema. NEUROLOGIC: She is lethargic, but will respond to questions and demonstrates no focal neurologic deficits. LABORATORY: White count continues to improve down to 13,800. Hemoglobin 12.3, hematocrit 38.8, platelet count 381,000. Differential does continue to show a left shift with 1% bands today, 4 metamyelocytes, 1 promonocyte. Chemistries show normal electrolytes. CO2 normal at 30, anion gap elevated 92.8, BUN 44, creatinine 1.0. Lactic acid repeat was 1.7, calcium 9.1. Liver enzymes within normal limits as well as ammonia 27. TSH normal at 0.84, albumin 3.2. Repeat urinalysis after Rodriguez catheter within normal limits with no bacteria, white cells or red cells. MICROBIOLOGY: Sputum culture was cancelled due to epithelial contamination. Blood cultures remain negative at 3 days. RADIOLOGY: Repeat chest x-ray today per radiologic interpretation shows enlarged heart with increased vasculature, pulmonary edema consistent with large volume overload or congestion failure. She also had a CT of the head without contrast with no acute findings. ASSESSMENT: 1. Viral pneumonitis secondary to influenza A with continued concerns for bacterial pneumonia, likely community acquired, bilaterally with the patient remaining on parenteral antibiotic to include Rocephin and azithromycin. 2. Concerns for pulmonary edema with radiographic studies indicating increased vasculature, pulmonary edema with the patient having no formal diagnosis of congestive heart failure and no echocardiogram available for review, but failing to respond to mild diuresis attempts with Lasix p.o., now requiring more aggressive management with Bumex and IV Lasix. 3. Sepsis secondary to #1, now resolved with initiation of treatment. 4. Electrolyte imbalance to include hypokalemia and hypomagnesemia, back to baseline levels with treatment parenterally. 5. Congestive heart failure, probable, without echocardiogram for review for confirmation, etiology uncertain with the patient continuing show an elevated BNP and becoming symptomatic and failing to respond to initiation of diuretics with the patient without any chest pains. 6. Influenza A infection. 7. History of hypertension. 8. History of' peripheral neuropathy. 9. History of depression and notable anxiety, requiring initiation of Xanax. 10. History of diabetes mellitus, type 2, on diet therapy, well controlled. 11. Moderate dehydration on admission due to infectious process with some concerns for pulmonary edema complicated by underlying pneumonia and viral pneumonitis. 12. Acute mental status change with some mild delirium, probably due to initiation of benzodiazepines and complicated by underlying infectious process indicating possible metabolic encephalopathy with some component of exacerbation probably due to Tamiflu, medication induced. PLAN: Since the patient is having a clinical decline in status although her white count is somewhat improved and she remains afebrile, based on her x-rays, we are going to go ahead and diurese her fairly aggressively. We will start with some Bumex IV 1 mg and continue with Lasix 40 mg IV b.i.d. We will monitor her labs closely. She will continue with treatment for possible underlying pneumonia with Rocephin and azithromycin. I have stopped her Tamiflu as she has been afebrile, white count is improved and she was exposed to influenza A well over 5 days prior to initiation of treatment although her initial flu test was positive for influenza A, however, due to her acute mental status change, we will stop the Tamiflu at this point. Diagnostically, we will continue to follow the patient with repeat chest x-rays and labs. She continues on aggressive pulmonary hygiene with chest percussive therapy. I also have a consultation with physical therapy once the patient is more alert and see if she is able to ambulate to some degree and see if she will qualify for oxygen or needs oxygen once discharged. Again, she would likely benefit from a consultation with [facility] as well. We will again work to see if she needs to go home on O2. Until she can transition to outpatient management, we will continue to treat more aggressively and as she does improve clinically, we will anticipate transition to outpatient in the next 1 to 2 days. In regards to her congestive heart failure diagnosis being a possibility, she is on an PAULETTE inhibitor and would benefit from beta juan pablo as well as at some point she will need an echocardiogram. Until she can transition to outpatient management, we will continue to monitor and treat as needed. #[id number] MTDD
[2018-05-09] MEDS: POTASSIUM CHLORIDE 20 MEQ TAB PO SCH (16:51)
[2018-05-09] MEDS: FUROSEMIDE INJ 40 MG/4 ML VIAL IV SCH (16:51)
[2018-05-09] MEDS: ACETAMINOPHEN 325 MG TAB PO PRN (19:30)
[2018-05-09] MEDS: IBUPROFEN 200 MG TAB PO SCH (21:25)
[2018-05-10] MEDS: PANTOPRAZOLE SODIUM IV 40 MG VIAL IV SCH (06:36)
--- NOTE | 2018-05-10 07:16 | RAD ---
EXAM DESCRIPTION: Chest,1 View CLINICAL HISTORY: chf COMPARISON: May 09, 2018 FINDINGS: The cardiac silhouette is enlarged. The central bronchovascular markings are indistinct. Bibasilar interstitial and patchy alveolar opacities are noted, not significantly changed from yesterday's exam. Question tiny left-sided effusion. There is no pneumothorax or acute fracture. IMPRESSION: Mild to moderate CHF, unchanged from yesterday's exam. Viral or other atypical infection could have a similar appearance. Electronically signed by: Jacobo Melgoza MD 05/10/2018 7:13 AM [facility]
[2018-05-10] MEDS ORDERED: SODIUM CHLORIDE 0.9% 250ML 250 ML ONE (07:40)
[2018-05-10] MEDS ORDERED: SODIUM CHL 0.9% 50ML MIN-BAG+ 50 ML IVPB ONE (07:41)
[2018-05-10] MEDS ORDERED: AZITHROMYCIN IV 500 MG VIAL IVPB ONE (07:42)
[2018-05-10] MEDS ORDERED: cefTRIAXone SODIUM 1 GM VIAL ONE (07:42)
[2018-05-10] MEDS: SERTRALINE HCL 50 MG TAB PO SCH (08:40)
[2018-05-10] MEDS: NYSTATIN POWDER 15GM BTTL TOP SCH ×4 (08:41→20:53)
[2018-05-10] MEDS: hydroCHLOROthiazide 12.5 MG CAP PO SCH (08:41)
[2018-05-10] MEDS: predniSONE 20 MG TAB PO SCH (08:41)
[2018-05-10] MEDS: BUMETANIDE 0.25 MG/ML VIAL IV SCH (08:41)
[2018-05-10] MEDS: LISINOPRIL 10 MG TAB PO SCH (08:41)
[2018-05-10] MEDS: OSELTAMIVIR 75 MG CAP PO SCH ×2 (08:42→20:55)
[2018-05-10] MEDS: INSULIN LISPRO 100 UNITS/ML PEN SUBCU SCH ×4 (08:42→20:54)
[2018-05-10] MEDS: POTASSIUM CHLORIDE 20 MEQ TAB PO SCH ×2 (08:43→16:09)
[2018-05-10] MEDS: BUDESONIDE NEBS 0.5 MG/2 ML VIAL NEB SCH ×2 (09:01→20:46)
[2018-05-10] MEDS: IPRATROPIUM/ALBUTEROL 3 ML VIAL INH SCH ×4 (09:01→20:46)
[2018-05-10] MEDS: ENOXAPARIN SODIUM 40 MG/0.4 ML SYG SUBCU SCH (09:14)
[2018-05-10] MEDS: cefTRIAXone SODIUM 1 GM in SODIUM CHL 0.9% 50ML MIN-BAG+ 50 ML IVPB SCH (09:14)
[2018-05-10] MEDS: GABAPENTIN 300 MG CAP PO SCH ×2 (09:18→20:53)
[2018-05-10] MEDS: FUROSEMIDE INJ 40 MG/4 ML VIAL IV SCH ×2 (10:21→16:10)
[2018-05-10] MEDS: AZITHROMYCIN IV 500 MG in SODIUM CHLORIDE 0.9% 250ML 250 ML IVPB SCH (10:31)
[2018-05-10] MEDS: BIFIDOBACTERIUM INFANTIS 4 MG CAP PO SCH (10:31)
[2018-05-10] MEDS: ACETAMINOPHEN 325 MG TAB PO PRN (16:10)
--- NOTE | 2018-05-10 19:36 | PN ---
DATE: 05/10/18 SUPERVISING PHYSICIAN: Isaac Simons M.D. SUBJECTIVE: The patient continues to show improvement. She is much more alert since we stopped the Xanax and Tamiflu. She has actually been up to a chair. She does continue to be significantly weak and has visited with [facility] for referral and has agreed once able to discharge to transfer to [facility] in [place]. OBJECTIVE: VITAL SIGNS: Afebrile, temperature 98.1, pulse 98, blood pressure 59/76, respirations 16, satting 95% on nasal cannula at 2 liters at rest. I's and O's show a negative balance of 2310 with 1140 in, 3450 out. Weight 94.8 kg. GENERAL: The patient is resting in the bedside chair. She is very flat in affect, but will address questions once asked. She is alert and oriented and appears to be in no acute distress. CHEST: Lung sounds are improving with better aeration heard throughout, especially towards the bases bilaterally without any rhonchi, wheezing or rales noted. HEART: Regular rate and rhythm. ABDOMEN: Soft, non-tender. Positive bowel sounds. EXTREMITIES: Without any clubbing, cyanosis or edema. NEUROLOGIC: She is alert and oriented times three. LABORATORY: White count now has normalized to 9,600, hemoglobin 11.8, hematocrit 36.1, platelet count 324,000. Differential continues to show a left shift. Chemistries show a normal sodium and potassium. Carbon dioxide is up slightly to 39, BUN 45, creatinine 1.02. Blood sugars have ranged between 129 and 178. Calcium 8.6. MICROBIOLOGY: Sputum culture was cancelled due to contamination. Blood cultures remain negative after 5 days. RADIOLOGY: Repeat chest x-ray this morning per radiology interpretation showed mild to moderate congestive heart failure unchanged from previous at yesterday's exam, viral atypical infection could have similar appearance. Please refer to that final report for full details. ASSESSMENT: 1. Viral pneumonitis secondary to influenza A with probable bacterial pneumonia, community acquired, bilaterally with the patient requiring initiation of antibiotics to include Rocephin and azithromycin. 2. Acute congestive heart failure without any formal history with no echocardiogram available for review, but the patient showing good response to Lasix and Bumex. 3. Sepsis secondary to #1, resolved after initiation of treatment. 4. Electrolyte imbalance with hypokalemia and hypomagnesemia, back to baseline levels with parenteral replacement. 5. Influenza A infection. 6. History of hypertension. 7. History of' peripheral neuropathy. 8. History of depression and notable anxiety, requiring initiation of Xanax. 9. History of diabetes mellitus, type 2, on diet oral therapy. 10. Acute mental status change secondary to #1 and initiation of Benzodiazepines complicated by adverse reaction to Tamiflu, now back to baseline levels after stopping all medications, including Tamiflu as well as Benzodiazepines. PLAN: The patient continues to show improvement with Lasix. Will hopefully be able to transition her to p.o. tomorrow. She did get and additional dose this morning with Bumex. X-ray is showing some stabilization if not some improvement. Certainly she clinically has improved. She did have the consultation this morning with [facility] and has agreed once discharged to report as a patient for continued rehabilitation efforts. Until then will continue with aggressive pulmonary hygiene plus monitoring oxygen as needed. In regards to her CHF, she is on an Jorge inhibitor. Will need consideration for a possible beta juan pablo, however there is no echocardiogram to review and she needs to be further worked up as an outpatient. Until then will continue to monitor and treat as needed. #[id number] MTDD
[2018-05-10] MEDS: IBUPROFEN 200 MG TAB PO SCH (20:53)
[2018-05-10] MEDS: SODIUM CHLORIDE 0.9% (FLUSH) 10 ML SYG IV PRN (20:54)
[2018-05-11] MEDS: PANTOPRAZOLE SODIUM IV 40 MG VIAL IV SCH (06:21)
[2018-05-11] MEDS: INSULIN LISPRO 100 UNITS/ML PEN SUBCU SCH ×2 (07:35→12:10)
[2018-05-11] MEDS ORDERED: SODIUM CHL 0.9% 50ML MIN-BAG+ 50 ML IVPB ONE (07:37)
[2018-05-11] MEDS ORDERED: cefTRIAXone SODIUM 1 GM VIAL ONE (07:39)
[2018-05-11] MEDS: POTASSIUM CHLORIDE 20 MEQ TAB PO SCH (08:03)
[2018-05-11] MEDS: NYSTATIN POWDER 15GM BTTL TOP SCH ×2 (08:39→13:25)
[2018-05-11] MEDS: LISINOPRIL 10 MG TAB PO SCH (08:39)
[2018-05-11] MEDS: predniSONE 20 MG TAB PO SCH (08:39)
[2018-05-11] MEDS: ENOXAPARIN SODIUM 40 MG/0.4 ML SYG SUBCU SCH (08:39)
[2018-05-11] MEDS: hydroCHLOROthiazide 12.5 MG CAP PO SCH (08:40)
[2018-05-11] MEDS: SERTRALINE HCL 50 MG TAB PO SCH (08:40)
[2018-05-11] MEDS: BIFIDOBACTERIUM INFANTIS 4 MG CAP PO SCH (08:40)
[2018-05-11] MEDS: GABAPENTIN 300 MG CAP PO SCH (08:40)
[2018-05-11] MEDS: FUROSEMIDE INJ 40 MG/4 ML VIAL IV SCH (08:41)
[2018-05-11] MEDS: OSELTAMIVIR 75 MG CAP PO SCH (08:41)
[2018-05-11] MEDS: SODIUM CHLORIDE 0.9% (FLUSH) 10 ML SYG IV PRN (08:42)
[2018-05-11] MEDS: cefTRIAXone SODIUM 1 GM in SODIUM CHL 0.9% 50ML MIN-BAG+ 50 ML IVPB SCH (08:43)
[2018-05-11] MEDS ORDERED: AZITHROMYCIN IV 500 MG VIAL IVPB ONE (09:35)
[2018-05-11] MEDS ORDERED: SODIUM CHLORIDE 0.9% 250ML 0 ML ONE (09:35)
[2018-05-11] MEDS: BUDESONIDE NEBS 0.5 MG/2 ML VIAL NEB SCH (09:45)
[2018-05-11] MEDS: IPRATROPIUM/ALBUTEROL 3 ML VIAL INH SCH ×3 (09:45→18:09)
[2018-05-11] MEDS: AZITHROMYCIN IV 500 MG in SODIUM CHLORIDE 0.9% 250ML 250 ML IVPB SCH (10:11)
[2018-05-11 11:00] VITALS: TEMP 98.5
[2018-05-11] MEDS: ACETAMINOPHEN 325 MG TAB PO PRN (13:25)
[2018-05-11 15:09] VITALS: BP 104/64
[2018-05-11 18:09] VITALS: O2SAT 96
--- NOTE | 2018-05-11 20:55 | DS ---
SUPERVISING PHYSICIAN: Isaac Simons M.D. ADMISSION DIAGNOSIS: 1. Viral pneumonitis secondary to influenza A with possible secondary bacterial pneumonia. 2. Sepsis secondary to #1. 3. Electrolyte imbalance. 4. Congestive heart failure. 5. Possible urinary tract infection. 6. Hypertension. 7. Peripheral neuropathy. 8. Depression. 9. Diabetes mellitus type 2. 10. Moderate dehydration. DISCHARGE DIAGNOSIS: 1. Viral pneumonitis secondary to influenza A. 2. Congestive heart failure. 3. Sepsis secondary to #1. 4. Electrolyte imbalance. 5. Hypertension. 6. Peripheral neuropathy. 7. Depression. 8. Diabetes mellitus type 2. HOSPITAL COURSE: This is a 77 year-old female who came into the Emergency Room with a 5 day history of cough and shortness of breath. She was recently exposed to Influenza type A. No significant history of chronic obstructive pulmonary disease but was exposed to second hand smoking on a regular basis. Anyhow in the Emergency Room she was noted to be hypoxic with an SpO2 of 85%. She was placed on oxygen at that time. She did have leukocytosis with a left shift as well which was concerning for superimposed bacterial infection. Therefore she was admitted with a viral pneumonitis with bacterial pneumonia as well. Clinically she improved regarding her pulmonary status over the 6 days she was here. Her cultures did not show any bacterial growth. She did have some confusion and once the Tamiflu and the Benzodiazepines were discontinued this cleared. Therefore she was evaluated by [facility] and was accepted to that facility. She does have significant weakness and was having difficulty getting up and down out of bed, so she will benefit greatly from the [facility] admission. Discharge medications were done and you can see those in the computer. Activity is going to be as per the Physical Therapy staff at [facility]. Diet as tolerated as well. #[id number] [facility]
== END 2018-05-11 16:05 | DRG 871 ==
LOC: ER 16:12 → MS 20:13
PROVIDERS: ADMIT Nurse Practitioner Family; ATTEND Nurse Practitioner
DX: A41.89 Other specified sepsis (principal); J10.01 Influenza due to other identified influenza virus with the same other identified influenza virus pneumonia; J15.9 Unspecified bacterial pneumonia; I11.0 Hypertensive heart disease with heart failure; E11.42 Type 2 diabetes mellitus with diabetic polyneuropathy; F32.9 Major depressive disorder, single episode, unspecified; I50.9 Heart failure, unspecified; E86.0 Dehydration; F41.0 Panic disorder [episodic paroxysmal anxiety]; E87.6 Hypokalemia; E83.42 Hypomagnesemia; R41.82 Altered mental status, unspecified; T42.4X5A Adverse effect of benzodiazepines, initial encounter; T37.5X5A Adverse effect of antiviral drugs, initial encounter; Y92.230 Patient room in hospital as the place of occurrence of the external cause; Z88.5 Allergy status to narcotic agent

== ENCOUNTER → 2018-06-16 | Outpatient (CLI) | payer MEDICARE ==
[~2018-06-16] MED LIST: IPRATROPIUM/ALBUTEROL 3 ML VIAL NEB ONE
== END ==
LOC: RESP 10:08
PROVIDERS: ATTEND Family Medicine
DX: R06.02 Shortness of breath (principal)

== ENCOUNTER → 2019-07-26 | Outpatient (CLI) | payer MEDICARE | LOC: GMAE 11:19 | PROVIDERS: ATTEND Family Medicine | DX: I10 Essential (primary) hypertension (principal) ==

== ENCOUNTER → 2019-10-02 | Outpatient (CLI) | payer MEDICARE ==
--- NOTE | 2019-10-03 16:03 | CT ---
EXAM DESCRIPTION: Lumbar Spine: Computed Tomography. CLINICAL HISTORY: 78 years Female LUMBAGO WITH SCIATICA COMPARISON: None Available. TECHNIQUE: Spiral, axial 2.5 x 2.5 mm scans through the lumbarspine without contrast. Axial 2.5 mm helical scans with bone algorithm. Coronal and sagittal 2.0 mm Reconstructions. No adverse reactions. Total Exam DLP: 717 mGy-cm. This exam was performed according to our departmental dose-optimization program which includes automated exposure control, adjustment of the mA and/or kV according to patient size and/or use of iterative reconstruction technique; to reduce radiation dose to as low as reasonably achievable (ALARA). Technically difficult study due to patient large body habitus. FINDINGS: L5-S1: Moderate disc space loss with desiccated disc gas throughout the disc space. Posterior disc osteophyte bulge in the midline and left of midline. Also bulging into the left foramen which is stenotic. Similar process in the right foramen. Bilateral hypertrophic facet arthrosis more left than right, with large posterior spur. Hypertrophy of the flavum ligaments. Bilateral L5 pars sclerosis. Mild to moderate canal narrowing. L4-L5: Disc space maintained with minimal posterior bulge and calcification. Posterior 4 mm bulge. Moderate hypertrophic changes in the facet joints and flavum ligaments (canal elements). AP canal diameter 8.5 mm. Bilateral moderate foraminal narrowing. Deformity of the superior endplate at L4 with depression suggesting compression injury with approximately 20% depression of the endplate centrally and anteriorly. 3 mm retropulsion of the endplate. L3-L4: Mild hypertrophic changes in the canal elements. AP canal diameter 7 mm. No fracture lines in the lamina or pedicles or disruption of the facet joints. Bilateral mild foraminal stenosis. Desiccated disc gas with widening of the disc space. L2-L3: Endplate spurs and disc space loss. 2 mm grade 1 retrolisthesis. Posterior disc osteophyte bulge into the canal with hypertrophic changes in the canal elements. AP diameter 11 mm. Bilateral moderate to severe foraminal narrowing. L1-L2: Endplate marginal spurs predominantly anterior and to the right with disc space maintained. Posterior broad-based bridging osteophytes abutting the thecal sac. Minimal hypertrophic changes in the canal elements. AP canal diameter 11 mm. Spur may be effacing the right subarticular recess and abutting the descending right L2 nerve. Bilateral [id number] foraminal narrowing. More to the right of midline. T12-L1: Minimal disc space loss with marginal spurs more right than left. Small posterior midline spur. Minimal hypertrophic changes in canal elements. Mild canal and foraminal narrowing. Minimal mid lumbar dextro-scoliosis. No compression type vertebral body fractures at other levels. No fractures involving the posterior elements at other levels. Moderate atherosclerotic calcifications in the abdominal aorta and common iliac arteries. Pelvic calcifications involving the splenic artery. Bilateral arthrosis in the SI joints. IMPRESSION: 1. Compression type fracture with depression of the superior L4 endplate with retropulsion into the canal. Mild canal and bilateral L3-L4 foraminal stenosis. No fracture lines in the lamina or pedicles but cannot exclude marrow edema. Widening of the L3-L4 disc space with desiccation of the disc. 2. L5-S1 disc osteophyte complex encroaching on the left foramen which is stenotic. Correlate for left L5 radiculopathy. 3. Mild to moderate multifactorial central canal stenosis L4-L5. Bilateral moderate to severe foraminal narrowing at L2-L3 with grade 1 retrolisthesis and posterior disc osteophyte bulge. 4. Right posterior disc spur complex at L1-L2 is effacing the right subarticular recess possibly compromising the right L2 nerve. Electronically signed by: Joselo Aly MD 10/03/2019 4:01 PM CDT
== END ==
LOC: CT 15:36
PROVIDERS: ATTEND General Practice
DX: M48.56XA Collapsed vertebra, not elsewhere classified, lumbar region, initial encounter for fracture (principal); M48.061 Spinal stenosis, lumbar region without neurogenic claudication; M51.36 Other intervertebral disc degeneration, lumbar region; M43.16 Spondylolisthesis, lumbar region; M25.78 Osteophyte, vertebrae

== ENCOUNTER → 2019-10-16 | Outpatient (CLI) | payer MEDICARE ==
--- NOTE | 2019-10-17 08:46 | MRI ---
EXAM DESCRIPTION: Lumbar Spine w/o Contrast CLINICAL HISTORY: LUMBAGO WITH SCIATICA COMPARISON: None Available. TECHNIQUE: MRI of the lumbar spine is performed according to our usual protocol with axial and sagittal multi sequence imaging. FINDINGS: Sagittal T2 images reveal decreased signal intensity consistent with desiccation of the intervertebral discs at all lumbar levels. Depressed superior endplate of L4 consistent with old partial compression. Posterior annular bulges are present at all lumbar levels most prominent at L3-4 and L4-5. No prevertebral mass or aneurysm. Lower cord and conus appear normal. Tip of the conus is behind upper L1. Sagittal T1 images reveal signal loss in L4 vertebral body with linear low signal intensity consistent with vertebral body compression fracture. This extends through the anterior and posterior aspects of the vertebral body and there is focal accentuation of depression of the superior endplate of L4 anteriorly. Maximal loss of height approximately 50%. The presence of marrow edema indicates an acute to subacute compression fracture. Involvement of the posterior third of the vertebral body suggests the possibility of instability but there is no extension of the fracture line into the posterior elements. No widening of the facet joints to suggest disruption of the posterior supporting ligaments. Mild upper posterior vertebral body retropulsion with mild spinal canal narrowing. Otherwise benign marrow signal characteristics in the other vertebral bodies. Vacuum disc phenomenon at L5-S1. Normal T1 signal intensity and appearance of the lower cord and conus. Sagittal STIR images are positive for increased signal intensity in the L4 vertebral body consistent with acute compression fracture. Mild edematous changes in the soft tissues around the left facet joint. No paraspinous fluid collection or cystic lesion. Axial T1 and T2-weighted images were obtained to evaluate the disc levels. T12-L1: No posterior annular bulge or herniation. No spinal stenosis or neural foraminal narrowing. Mild facet hypertrophy. Normal appearance of the lower cord and conus. L1-2: Mild diffuse posterior annular bulge without significant spinal stenosis or neural foraminal narrowing. Mild bilateral facet hypertrophic changes. L2-3: Moderate diffuse posterior annular bulge without significant spinal stenosis. Mild bilateral neural foraminal narrowing related to bulging disc material. Moderate facet hypertrophic changes with ligamentum flavum thickening causing moderate left more than right subarticular recess compromise crowding the descending L3 nerve roots. L3-4: Moderately severe diffuse posterior annular bulge is seen with marked facet hypertrophy and thickening of the ligamentum flavum causing multifactorial spinal stenosis with AP diameter the spinal canal 7 mm in the mediolateral width of the canal narrowed to 5 mm. Severe narrowing of subarticular recesses and upper lateral recesses impinging upon the descending L4 nerve roots bilaterally. Sagittal images show mild to moderate bilateral neural foraminal narrowing. At the level of the L4 compression, mild retropulsion of the posterior superior margin of the L4 vertebral body 4.5 mm narrows the AP diameter the spinal canal to 9.5 mm. Canal compromise appears to be predominantly related to chronic degenerative disc disease at the L3-4 disc rather than retropulsion bone fragment due to the L4 compression fracture. L4-5: Moderately severe diffuse posterior annular bulge is seen with left paracentral and left posterolateral accentuation measuring approximately 2.5 mm in AP dimension (axial image eight, series 501). Moderate right and severe left subarticular recess and upper lateral recess narrowing impinging upon the descending left L5 nerve root. Sagittal images show moderate right and moderately severe left neural foraminal narrowing. There is moderate spinal stenosis at this level with the AP diameter the spinal canal narrowed to 8 mm in AP dimension. Thickened ligamentum flavum narrows the mediolateral width of the canal to 6 mm. Marked facet hypertrophic spurring. L5-S1: Moderate diffuse posterior annular bulge with severe narrowing of right more than left subarticular recesses impinging upon the descending S1 nerve roots. There is moderately severe left and severe right neural foraminal narrowing crowding the exiting L5 nerve roots. Marked facet hypertrophic spurring with ligamentum flavum thickening. Upper sacrum appears intact. No retroperitoneal mass or aneurysm. IMPRESSION: Findings most consistent with acute or subacute compression fracture of L4 with approximately 50% loss of height. See above. Moderately severe L3-4 and moderate L4-5 multifactorial spinal stenosis. Multilevel subarticular recess and neural foraminal narrowing as described. Electronically signed by: Tim Viera MD 10/17/2019 8:44 AM CDT
== END ==
LOC: MRI 14:00
PROVIDERS: ATTEND General Practice
DX: M48.061 Spinal stenosis, lumbar region without neurogenic claudication (principal); M51.86 Other intervertebral disc disorders, lumbar region

== ENCOUNTER → 2019-11-01 | Outpatient (CLI) | payer MEDICARE ==
--- NOTE | 2019-11-02 09:20 | MRI ---
EXAM DESCRIPTION: Cervical Spine CLINICAL HISTORY: 79 years, Female, RADICULOPATHY COMPARISON: CT performed the same day, MRI cervical spine September 06, 2014 TECHNIQUE: Multiplanar multi sequence images of the cervical spine were obtained without gadolinium contrast. FINDINGS: Postoperative changes extending from C3 through C6 including bilateral laminectomy defects with posterior fixation screw and zonia construct at the same levels. Facet joints at the surgical levels are fused. Reversal of physiologic cervical lordosis. No vertebral body fracture or subluxation. Mild discogenic endplate edema at C7-T1. Alignment of the craniocervical junction is anatomic. Increased T2 signal centrally in the cervical cord posterior to the C4 and C5 bodies without cord expansion, no syrinx. [The paraspinal soft tissues are unremarkable.] Disc desiccation throughout the cervical spine. C2-3: The facet joints are fused with bilateral uncovertebral joint hypertrophy resulting in moderate bilateral neural foraminal stenosis. No posterior disc bulging or central canal stenosis. C3-4: Broad-based posterior disc bulging with bilateral uncovertebral joint hypertrophy resulting in moderate bilateral neural foraminal stenosis. Metallic artifact related to surgical hardware limits evaluation of the facet joints, bilateral laminectomy defects. C4-5: Broad-based posterior osteophytic ridging with bilateral uncovertebral joint hypertrophy resulting in moderate bilateral neural foraminal stenosis. Osteophyte approaches and likely abuts the anterior cervical cord. Metallic artifact from surgical hardware limits evaluation of the facet joints, laminectomy defects. C5-6: Anterior disc bulging. No posterior disc bulging. Bilateral uncovertebral joint hypertrophy resulting in more advanced bilateral neural foraminal stenosis. Artifact from surgical hardware limits evaluation of the facet joints, bilateral laminectomy defects. C6-7: Anterior disc bulging without significant posterior disc bulging. Bilateral uncovertebral joint hypertrophy resulting in moderately advanced bilateral neural foraminal stenosis. Metallic artifact from surgical hardware limits evaluation of the facet joints, bilateral laminectomy defects. C7-T1: Anterior disc bulging and anterior osteophyte formation. Broad-based posterior disc bulging bilateral uncovertebral and facet joint hypertrophy resulting in severe central canal and bilateral neural foraminal stenosis. Disc material abuts the anterior cervical cord with no edema. IMPRESSION: Multilevel postoperative changes without apparent surgical complication. Moderately advanced multilevel degenerative changes including posterior disc bulging, uncovertebral and facet joint hypertrophy resulting in central canal stenosis, neuroforaminal stenosis and cord abutment as detailed above. Central canal stenosis and cord abutment worse at C4-5 and C7-T1, central cord edema at C4-5 without syrinx or cord expansion to suggest mass. Electronically signed by: Jacobo Melgoza MD 11/02/2019 9:18 AM CDT
--- NOTE | 2019-11-02 09:23 | CT ---
EXAM DESCRIPTION: Cervical Spine CLINICAL HISTORY: RADICULOPATHY COMPARISON: None available. TECHNIQUE: CT of the cervical spine was performed without IV contrast. This exam was performed according to our departmental dose-optimization program, which includes automated exposure control, adjustment of the mA and/or kV according to patient size and/or use of iterative reconstruction technique. FINDINGS: Postoperative changes are again seen extending from C3 through C6 including facet joint fusion, posterior fixation rods and wide laminectomy defects. No hardware other surgical complication. No vertebral body fracture or subluxation. Reversal of physiologic cervical lordosis. Moderately advanced multilevel degenerative changes including anterior and posterior osteophytic ridging with uncovertebral and facet joint hypertrophy resulting in fairly advanced neuroforaminal stenosis throughout the cervical spine, relative sparing at C2-3. The lung apices are unremarkable. No thyroid nodule. Bilateral carotid artery disease. IMPRESSION: Multilevel postoperative changes without apparent hardware or other surgical complication. Moderately advanced multilevel degenerative changes including degenerative disc disease with facet and uncovertebral joint hypertrophy resulting in neuroforaminal stenosis throughout the cervical spine. Carotid artery disease, ultrasound should be considered for further evaluation if not performed recently. Electronically signed by: Jacobo Melgoza MD 11/02/2019 9:21 AM CDT
== END | disposition home or self-care (01) ==
LOC: MRI 13:00
PROVIDERS: ATTEND Neurological Surgery
DX: M54.12 Radiculopathy, cervical region (principal)